=== PATIENT | male | born 1995 | race Caucasian/White ===

== ENCOUNTER 2018-06-14 07:50 | Day surgery (SDC) | payer OTHER ==
[~2018-06-14 07:50] MED LIST: Buffered Lidocaine 1% SYRIN* 1 ML/SYRINGE INTRADERM ONE; Dexamethasone IV* 4 MG/ML 1 ML (4 MG) IV SLOW PU ONE; Famotidine IV* 10 MG/ML 2 ML (20 mg) IV ONE; Lactated Ringers 1000 ML Bag* 1,000 ML IV SCH
[2018-06-14] MEDS ORDERED: Famotidine IV* 10 MG/ML 2 ML (20 mg) ONE (08:32)
[2018-06-14] MEDS ORDERED: Buffered Lidocaine 1% SYRIN* 1 ML/SYRINGE INTRADERM ONE (08:32)
[2018-06-14] MEDS ORDERED: Dexamethasone IV* 4 MG/ML 1 ML (4 MG) ONE (08:32)
[2018-06-14] MEDS ORDERED: fentaNYL* 50 MCG/ML 2 ML VIAL (100 MCG VIAL) ONE (09:37)
[2018-06-14] MEDS ORDERED: Midazolam* 1 MG/ML 2 ML VIAL (2 MG) ONE (09:37)
[2018-06-14] MEDS ORDERED: Lidocaine 2% EPI 1:200000 MPF*10-20 ML VIAL ONE (09:55)
[2018-06-14] MEDS ORDERED: Oxymetazoline 0.05% NASAL SPR* 15 ML BTL ONE (09:55)
[2018-06-14] MEDS ORDERED: Propofol* 10 MG/ML 20 ML BTL ONE (10:10)
[2018-06-14] MEDS ORDERED: Lidocaine 2% PF * 5 ML VIAL ONE (10:10)
[2018-06-14] MEDS ORDERED: DiMENhydriNATE IV* 50 MG/ML VIAL IV PUSH PRN (10:26)
[2018-06-14] MEDS ORDERED: Naloxone* 0.4 MG/ML 1 ML VIAL IV PRN (10:26)
[2018-06-14] MEDS ORDERED: fentaNYL* 50 MCG/ML 2 ML VIAL (100 MCG VIAL) IV PRN (10:26)
[2018-06-14] MEDS ORDERED: Phenylephrine 40 MCG/ML SYRINGE ONE (10:30)
[2018-06-14 11:50] VITALS: BP 128/70
--- NOTE | 2018-06-14 12:11 | OP ---
OPERATIVE REPORT: DATE OF OPERATION: 06/14/18 DATE OF : [birth year] SURGEON: Nikunj Severino MD PRE-OP DIAGNOSES: 1. Deviated nasal septum. 2. Hypertrophy of turbinates. 3. Nasal dyspnea. POST-OP DIAGNOSES: 1. Deviated nasal septum. 2. Hypertrophy of turbinates. 3. Nasal dyspnea. OPERATIVE PROCEDURES: Septoplasty, SMR of turbinates. BRIEF HISTORY: This is a 23-year-old with longstanding history of deviated nasal septum, nasal dyspn ea failed medical management. He elected for surgical therapy. DESCRIPTION OF PROCEDURE: The patient was taken to the operating room, general anesthetic given, the patient was intubated with LMA. Nose was decongested with Afrin placed pledgets. Subsequently, a 2% lidocaine with epinephrine was infiltrated in the nasal mucosa of the septum. Right hemitransfix incision was created. Mucoperichondrial flap was elevated. Quadrangular cartilage was disarticulate d along the vomer-ethmoidal complex and along the maxillary crest posteriorly and inferiorly. A portion of the maxillary crest was removed along with the portion of the vomer- ethmoidal complex i ncluding the large septal spur. Quadrangular cartilage was then scored on its concave surface and re placed in the midline. Multiple mattress sutures of chromic were then used. Sonia splint was then applied and secured with 2-0 silk. We then turned our attention to inferior turbinates. Submucosal elevation was carried out bilaterally and then submucosal resection was carried out. Cauterization w as carried out at the inferior turbinate region on both sides to aid with hemostasis. The patient wa s then awakened and sent to the recovery room in stable condition. Instrument and sponge counts were correct. Blood loss minimal. [id number]/[facility] [place] #: [id number]
== END 2018-06-14 12:06 | disposition home or self-care (01) ==
LOC: OR 07:50
PROVIDERS: ATTEND Otolaryngology
DX: J34.2 Deviated nasal septum (principal); J34.3 Hypertrophy of nasal turbinates; Z72.0 Tobacco use; F41.8 Other specified anxiety disorders; J30.89 Other allergic rhinitis; R49.0 Dysphonia
CPT/HCPCS: A9270-GY; J1100; J2250; J2704; J3010

== ENCOUNTER → 2019-01-22 12:13 | Day surgery (SDC) | payer OTHER ==
[~2019-01-22 12:13] MED LIST changes: +Bacitracin OINTMENT* 0.5% 0.5 oz TUBE ONE; -Dexamethasone IV* 4 MG/ML 1 ML (4 MG) IV SLOW PU ONE; +Dexamethasone IV* 4 MG/ML 1 ML (4 MG) ONE; -Famotidine IV* 10 MG/ML 2 ML (20 mg) IV ONE; +HYDROmorphone INJ1* 1 MG/ML SYRINGE IV PRN; +Lidocaine 2% PF * 5 ML VIAL ONE; +Lidocaine 2% w/ EPI 1:200,000* 20 ML SDV VIAL ONE; +Midazolam* 1 MG/ML 2 ML VIAL (2 MG) ONE; +Naloxone* 0.4 MG/ML 1 ML VIAL IV PRN; +Ondansetron INJ* 2 MG/ML VIAL IV PRN; +Ondansetron INJ* 2 MG/ML VIAL ONE; +Propofol* 10 MG/ML 20 ML BTL ONE; +fentaNYL* 50 MCG/ML 2 ML VIAL (100 MCG VIAL) IV PRN; +fentaNYL* 50 MCG/ML 2 ML VIAL (100 MCG VIAL) ONE; +oxyCODONE/Acetamin 5/325 MG* TAB PO PRN
[2019-01-22 16:03] VITALS: BP 116/65
--- NOTE | 2019-01-22 20:32 | OP ---
DATE OF OPERATION: 01/22/19 - SDS DATE OF : [birth year] SURGEON: Nikunj Severino M.D. PRE-OP DIAGNOSIS: Congenital deformity, ear. POST-OP DIAGNOSIS: Congenital deformity, ear. OPERATIVE PROCEDURE: Otoplasty. BRIEF HISTORY: This 23-year-old with significant deformity of the left ear, very self-conscious of this. He had a ____of deformity. He elected for surgical management. DESCRIPTION OF PROCEDURE: The patient was taken to the operating room, general anesthesia given, intubated with LMA. Left ear was then prepped and draped in the usual fashion. Incision was made just to the antihelical fold. The cartilage was then skeletonized. Portion of the cartilage was excised and folded backward, sutured back in place using 5.0 Ethicon. Skin was then closed using 5.0 Ethicon. The patient was then awakened after a dressing and sent to the recovery room in stable condition. Instrument and sponge counts were correct. Blood loss minimal. [id number]/[facility] #: [id number] [facility]
== END | disposition home or self-care (01) ==
LOC: OR 12:13
PROVIDERS: ATTEND Otolaryngology
DX: Q17.3 Other misshapen ear (principal); F41.8 Other specified anxiety disorders; F31.9 Bipolar disorder, unspecified; G47.00 Insomnia, unspecified; Z21 Asymptomatic human immunodeficiency virus [HIV] infection status; F17.210 Nicotine dependence, cigarettes, uncomplicated
CPT/HCPCS: A9270-GY; J1100; J2250; J2405; J2704; J3010